=== PATIENT | male | born 1955 ===

== ENCOUNTER 2023-09-03 06:10 | Day surgery (SDC) | payer OTHER ==
[~2023-09-03 06:10] MED LIST: CATAFLAN PO; HORIZANT300 MG PO; LIPITOR40 M1 PO; LOSARTAN-HCTZ1 EAC1 PO; ZANAFLEX4 M1 PO
[2023-09-03] MEDS ORDERED: PERCOCET 5-3251 EACH PO (10:11)
[2023-09-03] MEDS ORDERED: COLACE100 MG PO (10:12)
[2023-09-03] MEDS ORDERED: NEURONTIN300 MG PO (10:12)
== END 2023-09-03 16:55 | disposition home or self-care (01) ==
LOC: CIR.AMB 06:10
PROVIDERS: ATTEND Surgery
DX: K62.5 Hemorrhage of anus and rectum (principal); K64.4 Residual hemorrhoidal skin tags; K64.8 Other hemorrhoids; K62.89 Other specified diseases of anus and rectum; K64.2 Third degree hemorrhoids; Z20.822 Contact with and (suspected) exposure to COVID-19; I10 Essential (primary) hypertension